=== PATIENT | female | born 1995 | race Caucasian/White ===

== ENCOUNTER 2017-11-02 02:55 | Emergency (ER) | payer OTHER ==
[~2017-11-02] VITALS: Ht 162.6 cm; Wt 115.4 kg
[2017-11-02] MEDS ORDERED: LIDOCAINE700 MG TP (06:01)
[2017-11-02] MEDS ORDERED: ULTRAM50 MG PO (06:01)
[2017-11-02 06:23] VITALS: BP 114/70
== END 2017-11-02 06:23 | disposition home or self-care (01) ==
LOC: EME 02:55
DX: S50.11XA Contusion of right forearm, initial encounter (principal); S00.93XA Contusion of unspecified part of head, initial encounter; M62.838 Other muscle spasm; M54.2 Cervicalgia; M25.511 Pain in right shoulder; V49.50XA Passenger injured in collision with unspecified motor vehicles in traffic accident, initial encounter; Y92.410 Unspecified street and highway as the place of occurrence of the external cause; F17.200 Nicotine dependence, unspecified, uncomplicated
CPT/HCPCS: 70450; 72125; 73030; 73080; 73110; 99281; 99284